=== PATIENT | male | born 1975 | race Caucasian/White ===

== ENCOUNTER 2016-12-05 15:50 | Emergency (ER) | payer SELFPAY ==
[~2016-12-05] VITALS: Ht 190.5 cm; Wt 75.8 kg
[2016-12-05 15:50] VITALS: BP 152/76
[2016-12-05] MEDS ORDERED: NALT50TA4 (18:09)
[2016-12-05] MEDS ORDERED: SERT-155 (18:09)
[2016-12-05] MEDS ORDERED: ACAM0.05 (18:09)
[2016-12-05] MEDS ORDERED: NALT50TA4 PO (18:39)
[2016-12-05] MEDS ORDERED: SERT50TA PO (18:39)
== END 2016-12-05 17:18 | disposition left against medical advice (07) ==
LOC: M ED 15:50
DX: Z76.0 Encounter for issue of repeat prescription (principal); Z53.29 Procedure and treatment not carried out because of patient's decision for other reasons

== ENCOUNTER 2016-12-05 17:56 | Emergency (ER) | payer MEDICAID, OTHER, SELFPAY ==
[~2016-12-05] VITALS: Ht 190.5 cm; Wt 75.5 kg
[2016-12-05 17:56] VITALS: BP 133/70
[2016-12-05] MEDS ORDERED: ACAM0.05 (18:09)
[2016-12-05] MEDS ORDERED: SERT-155 (18:09)
[2016-12-05] MEDS ORDERED: NALT50TA4 (18:09)
[2016-12-05] MEDS ORDERED: NALT50TA4 PO (18:39)
[2016-12-05] MEDS ORDERED: SERT50TA PO (18:39)
== END 2016-12-05 19:09 | disposition home or self-care (01) ==
LOC: M ED 17:56
DX: Z76.0 Encounter for issue of repeat prescription (principal); F10.10 Alcohol abuse, uncomplicated; F17.200 Nicotine dependence, unspecified, uncomplicated

== ENCOUNTER 2017-05-30 15:33 | Emergency (ER) | payer OTHER ==
[~2017-05-30] VITALS: Ht 190.5 cm; Wt 81.8 kg
[2017-05-30 15:33] VITALS: BP 148/79
[~2017-05-30 15:33] MED LIST: ACAM0.05; NALT50TA4; NALT50TA4 PO; SERT-155; SERT50TA PO
[2017-05-30] MEDS ORDERED: TYLE325T5 PO (15:38)
[2017-05-30] MEDS ORDERED: HYDR50TA70 (15:38)
[2017-05-30] MEDS ORDERED: CLIN150C14 PO (16:02)
[2017-05-30] MEDS ORDERED: IBUP80TA PO (16:02)
[2017-05-30] MEDS ORDERED: IBUPROFEN 800 MG TAB PO ONE (16:15)
[2017-05-30] MEDS ORDERED: LIDOCAINE VISCOUS 2% SOLN 15ML UDC TOP ONE (16:15)
== END 2017-05-30 16:18 | disposition home or self-care (01) ==
LOC: M ED 15:33
DX: K02.9 Dental caries, unspecified (principal); S02.5XXA Fracture of tooth (traumatic), initial encounter for closed fracture; S03.2XXA Dislocation of tooth, initial encounter; X58.XXXA Exposure to other specified factors, initial encounter; Y92.89 Other specified places as the place of occurrence of the external cause; Y93.89 Activity, other specified; Y99.8 Other external cause status; K04.7 Periapical abscess without sinus; F41.9 Anxiety disorder, unspecified; F33.9 Major depressive disorder, recurrent, unspecified; F10.20 Alcohol dependence, uncomplicated; F17.210 Nicotine dependence, cigarettes, uncomplicated; Z79.899 Other long term (current) drug therapy

== ENCOUNTER 2018-05-13 21:52 | Emergency (ER) | payer OTHER ==
[2018-05-13] MEDS: KETOROLAC 60 MG/2 ML VIAL (J1885) IM (22:25)
== END 2018-05-13 22:44 | disposition home or self-care (01) ==
LOC: M ED 21:52
DX: M94.0 Chondrocostal junction syndrome [Tietze] (principal); F32.9 Major depressive disorder, single episode, unspecified; Z72.0 Tobacco use; Z79.899 Other long term (current) drug therapy
CPT/HCPCS: 93005

== ENCOUNTER 2024-05-19 13:18 | Emergency (ER) | payer OTHER ==
[~2024-05-19] VITALS: Ht 190.5 cm; Wt 75.4 kg
[~2024-05-19 13:18] MED LIST changes: +BUSP5TA; +CLIN150C17 PO; +HYDR50TA70; +IBUP80TA PO; +KETO10TAB PO; +MIRT15TA3; +NAPR-837 PO; +SERT-138 PO; +SERT-141 PO; -SERT-155; -SERT50TA PO; +SERT50TA29; +TYLE325T5 PO
[2024-05-19] MEDS ORDERED: SUBO8MIS SL (14:00)
[2024-05-19] MEDS ORDERED: IBUP200C28 PO (14:00)
[2024-05-19] MEDS ORDERED: ACET-683 PO (14:00)
[2024-05-19] MEDS ORDERED: CETI10CH PO (14:00)
[2024-05-19] MEDS: DERMABOND TOPICAL SKIN ADHESIVE TOP ONE (16:34)
[2024-05-19 18:20] VITALS: BP 134/75; TEMP 98.4; O2SAT 100
== END 2024-05-19 18:29 | disposition short-term general hospital (02) ==
LOC: M ED 13:18
DX: S06.360A Traumatic hemorrhage of cerebrum, unspecified, without loss of consciousness, initial encounter (principal); S02.92XA Unspecified fracture of facial bones, initial encounter for closed fracture; Y92.148 Other place in prison as the place of occurrence of the external cause; Y93.9 Activity, unspecified; Y99.9 Unspecified external cause status; Y04.0XXA Assault by unarmed brawl or fight, initial encounter; Z79.1 Long term (current) use of non-steroidal anti-inflammatories (NSAID); Z79.899 Other long term (current) drug therapy

== ENCOUNTER 2024-10-06 20:06 | Emergency (ER) | payer OTHER ==
[~2024-10-06] VITALS: Ht 190.5 cm; Wt 82.3 kg
[~2024-10-06 20:06] MED LIST changes: +ACET-683 PO; +CETI10CH PO; +IBUP200C28 PO; +SUBO8MIS SL
[2024-10-07 00:48] LABS: BASO % 0.6 % (0.0-1.0); EOS % 0.6 % (0.0-3.0); HEMATOCRIT 38.1 % (42.0-52.0); HEMOGLOBIN 12.5 g/dl (13.5-17.5); LYMPH # 2.3 10^3/uL (1.5-5.0); LYMPH % 31.1 % (24.0-44.0); MEAN CORPUSCULAR HEMOGLOBIN 29.1 pg (27.0-33.0); MEAN CORPUSCULAR HGB CONC 32.8 g/dl (32.0-36.5); MEAN CORPUSCULAR VOLUME 88.6 fl (80.0-96.0); MONO # 0.5 10^3/uL (0.0-0.8); MONO % 6.2 % (2.0-8.0); NEUTROPHILS # 4.5 10^3/uL (1.5-8.5); NEUTROPHILS % 61.4 % (36.0-66.0); PLATELET COUNT, AUTOMATED 247 10^3/uL (150-450); WHITE BLOOD COUNT 7.3 10^3/uL (4.0-10.0)
[2024-10-07 01:08] LABS: BLOOD UREA NITROGEN 13 MG/DL (9-23); CALCIUM LEVEL 9.1 MG/DL (8.5-10.1); CARBON DIOXIDE LEVEL 28 MMOL/L (20-31); CHLORIDE LEVEL 105 MMOL/L (98-107); CREATININE FOR GFR 0.72 MG/DL (0.70-1.30); GLOMERULAR FILTRATION RATE > 90.0 (>60); GLUCOSE, FASTING 99 MG/DL (60-100); POTASSIUM SERUM 4.4 MMOL/L (3.5-5.1); SODIUM LEVEL 139 MMOL/L (136-145)
[2024-10-07] MEDS: METOCLOPRAMIDE INJ 10MG/2ML VIAL IV ONE (01:28)
[2024-10-07] MEDS: diphenhydrAMINE 50MG/ML VIAL IV ONE (01:28)
[2024-10-07] MEDS: ACETAMINOPHEN 500 MG TAB PO ONE (01:29)
[2024-10-07 02:18] VITALS: BP 125/71; TEMP 97.1; O2SAT 96
== END 2024-10-07 02:29 | disposition home or self-care (01) ==
LOC: M ED 20:06
DX: R51.9 Headache, unspecified (principal); D64.9 Anemia, unspecified; F41.9 Anxiety disorder, unspecified; F32.A Depression, unspecified; F17.290 Nicotine dependence, other tobacco product, uncomplicated; F19.10 Other psychoactive substance abuse, uncomplicated; Z79.1 Long term (current) use of non-steroidal anti-inflammatories (NSAID); Z79.899 Other long term (current) drug therapy
CPT/HCPCS: 70450; 80048; 85025; 96374; 99284; J1200; J2765